=== PATIENT | male | born 1950 | race Caucasian/White ===

== ENCOUNTER 2018-04-15 06:59 | Day surgery (SDC) | payer MEDICARE, BC ==
[~2018-04-15 06:59] MED LIST: Lactated Ringers 1,000 ML IV SCH
[2018-04-15] MEDS ORDERED: fentaNYL 100 MCG/2 ML SDV ONE (07:54)
[2018-04-15] MEDS ORDERED: Propofol 200 MG/20 ML SDV ONE ×2 (07:54→08:20)
--- NOTE | 2018-04-15 17:18 | OR ---
DATE OF SURGERY: 04/15/2018. REFERRING PROVIDER: Vishal Valenzuela MD. PRE-OPERATIVE DIAGNOSES: Positive family history of colon cancer in father. This is the patient's second colonoscopy with last colonoscopy being 5 years ago. POST-OPERATIVE DIAGNOSES: 1. Mild hemorrhoids. 2. Mild sigmoid diverticulosis. 3. Normal distal ileum. PROCEDURE: Colonoscopy. SURGEON: Claudio Blair M.D. ANESTHESIA: Monitored anesthesia care. BOWEL PREP: Good. DESCRIPTION OF PROCEDURE: Reji is a 68-year-old male, who was brought to the endoscopy suite after discussing risks and benefits of the procedure. Informed consent was obtained for conscious sedation and colonoscopy with or without biopsy and/or polypectomy. We also discussed possibility of missed lesions. Pre-procedure exam was unremarkable. IV, oxygen, and monitors were placed. The patient was placed in the left lateral decubitus position. Sedation was administered and a digital rectal exam was performed and unremarkable. Colonoscope was passed into the rectum and slowly advanced all the way to the cecum. Cecum was viewed and photographed. The ileocecal valve was intubated and distal ileum was normal in appearance. The colonoscope was slowly withdrawn and the mucosa was closed observed in a direct circumferential manner. The ascending colon was unremarkable. The transverse colon was unremarkable. The descending colon was unremarkable. The sigmoid colon revealed some mild diverticulosis. Retroflexion was performed. Rectal mucosa was remarkable for some mild hemorrhoids. Scope was removed. The patient tolerated the procedure well. The patient was monitored until that baseline status. Discharge instructions were reviewed and the patient was discharged in good condition. COMPLICATIONS: None. TOTAL TIME: 10 minutes. ESTIMATED BLOOD LOSS: None. RECOMMENDATIONS/FOLLOW-UP: Recommend repeat colonoscopy in 5 years given the positive family history. The patient can resume his aspirin tomorrow. I would like to kindly thank, Vishal Valenzuela, for this referral. DMB: 04/15/2018 10:10:57 MODL: 04/15/2018 17:09:43 /[id number]
== END 2018-04-15 10:15 | disposition home or self-care (01) ==
LOC: VM.SDS 06:59
PROVIDERS: ATTEND Family Medicine
DX: Z12.11 Encounter for screening for malignant neoplasm of colon (principal); K64.9 Unspecified hemorrhoids; K57.30 Diverticulosis of large intestine without perforation or abscess without bleeding; I10 Essential (primary) hypertension; E66.9 Obesity, unspecified; Z87.891 Personal history of nicotine dependence; Z79.82 Long term (current) use of aspirin; Z79.899 Other long term (current) drug therapy; Z80.0 Family history of malignant neoplasm of digestive organs
CPT/HCPCS: J2704; J3010; J7120

== ENCOUNTER 2020-06-05 07:22 | Emergency (ER) | payer OTHER, MEDICARE, BC ==
[2020-06-05] MEDS: Diphtheria,Pertussis(Acell),Tetanus Vaccine 0.5 ML Syringe IM ONE (08:30)
[2020-06-05] MEDS: Bacitracin Oint 1 GM U/D Packet TOP ONE (08:30)
[2020-06-05] MEDS: Lidocaine 1% 30 ML SDV INJECT ONE (08:30)
--- NOTE | 2020-06-05 08:31 | EDM.PDOC ---
ED HPI GENERAL MEDICAL PROBLEM - General Stated Complaint: LACERATION TO RT HAND Time Seen by Provider: 06/05/20 07:50 Source of Information: Reports: Patient, RN, RN Notes Reviewed History Limitations: Reports: No Limitations - History of Present Illness INITIAL COMMENTS - FREE TEXT/NARRATIVE: .Patient presents to ER with complaint of laceration to the right hand between the thumb and forefinger. Patient states he was holding a flag pole when it slipped coming down crushing some skin between the thumb and the forefinger in the webbing. Patient states he thinks his last tetanus was around 2010, Onset: Today, Sudden - Related Data Allergies Allergy/AdvReac Type Severity Reaction Status Date / Time No Known Allergies Allergy Verified 04/15/18 07:59 Home Meds: Home Meds Aspirin 325 mg PO DAILY 04/09/18 [History] Past Medical History HEENT History: Reports: None Cardiovascular History: Reports: Hypertension Respiratory History: Reports: None Gastrointestinal History: Reports: None Genitourinary History: Reports: None Other Musculoskeletal History: arthroscopy right shoulder rotator cuff repair Neurological History: Reports: None Psychiatric History: Reports: None Endocrine/Metabolic History: Reports: None Hematologic History: Reports: None Immunologic History: Reports: None Oncologic (Cancer) History: Reports: None Dermatologic History: Reports: None - Past Surgical History Female Surgical History: ED ROS GENERAL - Review of Systems Review Of Systems: Comprehensive ROS is negative, except as noted in HPI. ED EXAM, SKIN/RASH Exam: See Below Exam Limited By: No Limitations General Appearance: Alert, WD/WN, No Apparent Distress Eye Exam: Bilateral Eye: EOMI, Normal Inspection Ears: Normal External Exam, Hearing Grossly Normal Nose: Normal Inspection Throat/Mouth: Normal Inspection, Normal Voice, No Airway Compromise Head: Atraumatic, Normocephalic Neck: Normal Inspection, Supple, Non-Tender, Full Range of Motion Respiratory/Chest: No Respiratory Distress, Lungs Clear, Normal Breath Sounds, No Accessory Muscle Use, Chest Non-Tender Cardiovascular: Normal Peripheral Pulses, Regular Rate, Rhythm, No Edema, No Gallop, No JVD, No Murmur, No Rub Peripheral Pulses: 2+: Radial (L), Radial (R) GI/Abdominal: Normal Bowel Sounds, Soft, Non-Tender (Male) Exam: Deferred Rectal (Males) Exam: Deferred Back Exam: Normal Inspection, Full Range of Motion, NT Extremities: Normal Inspection, Normal Range of Motion, Non-Tender, No Pedal Edema, Normal Capillary Refill Neurological: Alert, Oriented, CN II-XII Intact, Normal Cognition, Normal Gait, Normal Reflexes, No Motor/Sensory Deficits Psychiatric: Normal Affect, Normal Mood Skin: Warm, Dry, Other (3cm laceration to the right hand between the thumb and forefinger) Location, Skin: Upper Extremity, Right Lymphatic: No Adenopathy ED SKIN PROCEDURES - Laceration/Wound Repair Right Hand Appearance: Subcutaneous Distal NVT: Neuro & Vascular Intact Anesthetic Type: Local Local Anesthesia - Lidocaine (Xylocaine): 1% Plain Local Anesthetic Volume: 2cc Skin Prep: Chlorhexidine (Hibiciens) Exploration/Debridement/Repair: Wound Explored, In a Bloodless Field, Explored to Base, No Foreign Material Found Closed with: Sutures Lac/Wound length In cm: 3 Suture Size: 4-0 # of Sutures: 4 Suture Type: Nylon, Interrupted Drain Placement: No Sterile Dressing Applied: Provider Tetanus Status Addressed: Yes Complications: No Course - Orders/Labs/Meds Orders: Active Orders 24 hr Category Date Time Status Vaccines to be Administered [RC] PER UNIT ROUTINE Care 06/05/20 07:56 Active Meds: Medications Discontinued Medications Generic Name Dose Route Start Last Admin Trade Name Beatrice PRN Reason Stop Dose Admin Bacitracin 1 dose 06/05/20 07:55 06/05/20 08:30 Bacitracin Oint 1 Gm TOP 06/05/20 07:56 1 dose ONETIME ONE Administration Diphtheria/Tetanus/Acell Pertussis 0.5 ml 06/05/20 07:56 06/05/20 08:30 Adacel IM 06/05/20 07:57 0.5 ml .ONCE ONE Administration Lidocaine HCl 30 ml 06/05/20 07:55 06/05/20 08:30 Xylocaine-Mpf 1% INJECT 06/05/20 07:56 30 ml ONETIME ONE Administration Departure - Departure Time of Disposition: 08:45 Disposition: Home, Self-Care 01 Condition: Good Clinical Impression: Laceration - Discharge Information *PRESCRIPTION DRUG MONITORING PROGRAM REVIEWED*: No *COPY OF PRESCRIPTION DRUG MONITORING REPORT IN PATIENT VASHTI: No Instructions: Laceration Care, Adult, [id number], Sutures, Eev, or Adhesive Wound Closure, [id number] Additional Instructions: Keep area clean and dry Follow-up in the clinic with your primary care provider in 7 to 10 days to have sutures removed - My Orders Last 24 Hours: My Active Orders 06/05/20 07:56 Vaccines to be Administered [RC] PER UNIT ROUTINE - Assessment/Plan Last 24 Hours: My Active Orders 06/05/20 07:56 Vaccines to be Administered [RC] PER UNIT ROUTINE
== END 2020-06-05 08:50 | disposition home or self-care (01) ==
LOC: VM.ED 07:22
DX: S61.411A Laceration without foreign body of right hand, initial encounter (principal); I10 Essential (primary) hypertension; Z79.82 Long term (current) use of aspirin; Z23 Encounter for immunization; W23.0XXA Caught, crushed, jammed, or pinched between moving objects, initial encounter
CPT/HCPCS: 12002; 90471; 90715; 99282-25; 99283; J2001

== ENCOUNTER 2024-06-17 08:49 | Day surgery (SDC) | payer MEDICARE, BC ==
[2024-06-17] MEDS: Lactated Ringers 1,000 ML IV SCH (09:02)
[2024-06-17] MEDS ORDERED: fentaNYL 100 MCG/2 ML SDV ONE (09:10)
[2024-06-17] MEDS ORDERED: Propofol 200 MG/20 ML SDV ONE ×2 (09:10→10:53)
[2024-06-17] MEDS ORDERED: ePHEDrine 50 MG/ML SDV ONE (11:31)
== END 2024-06-17 13:00 | disposition home or self-care (01) ==
LOC: VM.SDS 08:49
PROVIDERS: ATTEND Student in an Organized Health Care Education/Training Program
DX: Z12.11 Encounter for screening for malignant neoplasm of colon (principal); D12.2 Benign neoplasm of ascending colon; D12.5 Benign neoplasm of sigmoid colon; Z86.0100 Personal history of colon polyps, unspecified; I10 Essential (primary) hypertension; E78.00 Pure hypercholesterolemia, unspecified; Z87.891 Personal history of nicotine dependence; Z80.0 Family history of malignant neoplasm of digestive organs
CPT/HCPCS: 00811; 88305; 99100; J2704; J3010; J3490; J7120